=== PATIENT | male | born 1960 | race Caucasian/White ===

== ENCOUNTER 2021-03-18 16:25 | Emergency (ER) | payer SELFPAY ==
[~2021-03-18 16:25] MED LIST: ALLOPURINOL100 MG PO; BENTYL 20MG TAB20 MG PO; COLCHICINE 0.60.6 MG PO; FLONASE 0.05% N16 GM; LISINOPRIL-HCT1 EAC1 PO; NORVASC 5 MG TAB5 MG PO; PREDNISONE 50 M50 MG PO; PREDNISONE10 MG PO; PROTONIX40 MG PO; RANITIDINE HCL150 M1 PO; SYNTHROID175 MCG PO; TESSALON PERLE100 MG PO; VANCOMYCIN HCL250 MG PO; Voltaren Gel 1 % TOP; ZOCOR40 MG PO; ZOFRAN4 MG PO
[2021-03-18 17:08] LABS: HEMOGLOBIN 12.9 gm/dl (14.0-17.5); RED BLOOD COUNT 3.98 M/UL (4.20-5.50); WHITE BLOOD COUNT 8.8 K/UL (4.5-11.0)
[2021-03-18 17:27] LABS: BUN/CREATININE RATIO 9 (0-10)
== END 2021-03-18 19:30 | disposition home or self-care (01) ==
LOC: ER1 16:25
PROVIDERS: Family Medicine
DX: S22.41XA Multiple fractures of ribs, right side, initial encounter for closed fracture (principal); S72.402A Unspecified fracture of lower end of left femur, initial encounter for closed fracture; S22.32XA Fracture of one rib, left side, initial encounter for closed fracture; I12.9 Hypertensive chronic kidney disease with stage 1 through stage 4 chronic kidney disease, or unspecified chronic kidney disease; N18.9 Chronic kidney disease, unspecified; V49.40XA Driver injured in collision with unspecified motor vehicles in traffic accident, initial encounter; Y92.410 Unspecified street and highway as the place of occurrence of the external cause
CPT/HCPCS: 36600; 70450; 71260; 72125; 73562; 80053; 80307; 81001; 82550; 82553; 82803; 83605; 83874; 84439; 84443; 84484; 85025; 85610; 85730; 86850; 86900; 86901; 93005; 96374; 96375; 99283; G0480; J2270; J2405